=== PATIENT | female | born 1965 | race Two or more races ===

== ENCOUNTER → 2018-02-25 | Emergency (ER) | payer OTHER ==
[~2018-02-25] VITALS: Ht 170.2 cm; Wt 77.1 kg
[~2018-02-25] MED LIST: AMLODIPINE BESYL5 MG; BENAZEPRIL HCL20 MG; METOPROLOL SUCC50 MG
== END | disposition home or self-care (01) ==
LOC: ER 20:14
DX: K52.89 Other specified noninfective gastroenteritis and colitis (principal); K64.4 Residual hemorrhoidal skin tags